=== PATIENT | male | born 1960 | race Caucasian/White ===

== ENCOUNTER 2020-08-30 04:41 | Emergency (ER) | payer BC ==
[2020-08-30] MEDS ORDERED: Ondansetron 4 MG/2 ML SDV IVPUSH ONE (05:18)
[2020-08-30] MEDS ORDERED: HYDROmorphone 0.5 MG/0.5 ML Syringe IVPUSH ONE ×2 (05:18→06:46)
--- NOTE | 2020-08-30 05:23 | EDM.PDOC ---
<Eric Edouard - Last Filed: 08/30/20 06:47> ED HPI GENERAL MEDICAL PROBLEM - General Chief Complaint: Gastrointestinal Problem Stated Complaint: ABD PAIN/VOMITING Time Seen by Provider: 08/30/20 05:15 Source of Information: Reports: Patient, Family History Limitations: Reports: No Limitations - History of Present Illness INITIAL COMMENTS - FREE TEXT/NARRATIVE: 59-year-old male who is been vomiting for 14 straight hours, abdominal cramps and pain, and weakness. No hematemesis. Bowels are moving, no diarrhea. He is not diabetic. He does have a history of pancreatitis but is not a drinker. No shortness of breath or chest pain, no jaundice or rash. Onset: Sudden Duration: Hour(s): (48 hours ago) Location: Reports: Abdomen (Pain is in his abdomen, generalized) Worsens with: Reports: Other (Increased pain with vomiting) Associated Symptoms: Reports: Loss of Appetite, Malaise, Nausea/Vomiting, Weakness. Denies: Fever/Chills, Headaches, Shortness of Breath Abdomen Pain Score (Numeric/FACES): 8 - Related Data Allergies Allergy/AdvReac Type Severity Reaction Status Date / Time No Known Allergies Allergy Verified 08/30/20 04:53 Home Meds: Home Meds Metoprolol Succinate 25 mg PO DAILY 08/30/20 [History] Ondansetron [Zofran ODT] 4 mg PO Q6H PRN #10 tab.dis 08/30/20 [Rx] Venlafaxine [Effexor XR] 150 mg PO DAILY 08/30/20 [History] lisinopriL [Lisinopril] 2.5 mg PO DAILY 08/30/20 [History] Past Medical History HEENT History: Reports: Impaired Vision Cardiovascular History: Reports: Hypertension, [place], Other (See Below) Respiratory History: Reports: COPD Gastrointestinal History: Reports: Pancreatitis Genitourinary History: Reports: Renal Calculus Musculoskeletal History: Reports: Fracture Psychiatric History: Reports: Depression - Infectious Disease History Infectious Disease History: Reports: Chicken Pox - Past Surgical History Cardiovascular Surgical History: Reports: Coronary Artery Stent Musculoskeletal Surgical History: Reports: Other (See Below) Other Musculoskeletal Surgeries/Procedures:: hip fx with pin Social & Family History - Tobacco Use Tobacco Use Status *Q: Former Tobacco User Years of Tobacco use: 20 Packs/Tins Daily: 1 Used Tobacco, but Quit: Yes Month/Year Tobacco Last Used: 2019 Second Hand Smoke Exposure: No - Caffeine Use Caffeine Use: Reports: Energy Drinks - Recreational Drug Use Recreational Drug Use: Yes Drug Use in Last 12 Months: Yes Recreational Drug Type: Reports: Marijuana/Hashish Recreational Drug Use Frequency: Weekly ED ROS GENERAL - Review of Systems Review Of Systems: See Below Constitutional: Reports: Malaise, Decreased Appetite. Denies: Fever, Chills HEENT: Reports: No Symptoms Respiratory: Denies: Shortness of Breath Cardiovascular: Denies: Chest Pain GI/Abdominal: Reports: Abdominal Pain, Nausea, Vomiting. Denies: Constipation, Diarrhea : Reports: No Symptoms Skin: Reports: No Symptoms Neurological: Reports: Weakness Psychiatric: Reports: No Symptoms ED EXAM, GENERAL - Physical Exam Exam: See Below Free Text/Narrative:: Patient is very thin, almost cachectic Exam Limited By: No Limitations General Appearance: Alert, Mild Distress (Very uncomfortable) Eye Exam: Bilateral Eye: Normal Inspection (No jaundice) Head: Atraumatic Respiratory/Chest: No Respiratory Distress, Lungs Clear Cardiovascular: Regular Rate, Rhythm. No: Tachycardia GI/Abdominal: Normal Bowel Sounds, Soft, Tender (Very tender to palpation diffusely, not rigid and not distended) Extremities: Normal Inspection. No: Pedal Edema Neurological: Alert, Oriented Psychiatric: Anxious, Flat Affect Skin Exam: Warm, Dry Course - Re-Assessments/Exams Free Text/Narrative Re-Assessment/Exam: 08/30/20 05:22 IV was started, patient was bolused with 1 L of lactated Ringer's, given 4 mg of IV Zofran and 0.5 mg of IV Dilaudid. CBC, CMP, lactic acid and lipase were obtained. 08/30/20 06:47 Labs were very reassuring, lipase was normal, lactic acid normal. His pain went down to a 4 after one liter of LR and the medications but he was still having discomfort and had no urinary output. A second liter of normal saline was given as well as a second dose of 0.5 mg of Dilaudid. Care was turned over to Dr. Odonnell he should be able to be discharged after the second round of medications. Departure - Departure Disposition: Home, Self-Care 01 Clinical Impression: Abdominal pain Qualifiers: Abdominal location: generalized Qualified Code(s): R10.84 - Generalized abdominal pain Nausea and vomiting Qualifiers: Vomiting type: unspecified Vomiting Intractability: non-intractable Qualified Code(s): R11.2 - Nausea with vomiting, unspecified - Discharge Information Prescriptions: Ondansetron [Zofran ODT] 4 mg PO Q6H PRN #10 tab.dis PRN Reason: Nausea Instructions: Nausea and Vomiting, Adult, [id number] Referrals: PCP,None [Primary Care Provider] - Forms: ED Department Discharge Additional Instructions: Use Zofran as needed for vomiting. Sip on fluids to maintain hydration. Advance diet slowly as tolerated. Use Acetaminophen for pain relief. Try an antacid like Maalox or Peptobismol to see if they help settle the stomach. F/U with your provider at your earliest opportunity. Sepsis Event Note (ED) - Evaluation Sepsis Screening Result: No Definite Risk <Melvin Odonnell - Last Filed: 08/30/20 08:11> Course - Vital Signs Last Recorded V/S: Last Vital Signs Temp 36.1 C 08/30/20 06:26 Pulse 80 08/30/20 06:26 Resp 16 08/30/20 06:26 BP 153/75 H 08/30/20 06:26 Pulse Ox 95 08/30/20 06:26 - Orders/Labs/Meds Orders: Active Orders 24 hr Category Date Time Status Lactated Ringers [Ringers, Lactated] 1,000 ml Med 08/30/20 05:30 Active IV ASDIRECTED Sodium Chloride 0.9% [Normal Saline] 1,000 ml Med 08/30/20 07:00 Active IV ASDIRECTED Medication Orders Lactated Ringer's (Ringers, Lactated) 1,000 mls @ 1,000 mls/hr IV ASDIRECTED BONG Last Admin: 08/30/20 05:26 Dose: 1,000 mls/hr Documented by: LINDA Sodium Chloride (Normal Saline) 1,000 mls @ 1,000 mls/hr IV ASDIRECTED BONG Last Admin: 08/30/20 06:53 Dose: 1,000 mls/hr Documented by: LINDA Labs: Laboratory Tests 08/30/20 08/30/20 08/30/20 Range/Units 05:24 05:24 05:24 WBC 9.8 (4.5-11.0) K/uL RBC 4.95 (4.30-5.90) M/uL Hgb 15.5 H (12.0-15.0) g/dL Hct 47.1 (40.0-54.0) % MCV 95 (80-98) fL MCH 31 (27-31) pg MCHC 33 (32-36) % Plt Count 143 L (150-400) K/uL Neut % (Auto) 85.4 H (36-66) % Lymph % (Auto) 11.8 L (24-44) % Lipscomb % (Auto) 2.6 (2-6) % Eos % (Auto) 0.1 L (2-4) % Baso % (Auto) 0.1 (0-1) % Sodium 141 (140-148) mmol/L Potassium 4.6 (3.6-5.2) mmol/L Chloride 101 (100-108) mmol/L Carbon Dioxide 23 (21-32) mmol/L Anion Gap 16.8 H (5.0-14.0) mmol/L BUN 24 H (7-18) mg/dL Creatinine 1.1 (0.8-1.3) mg/dL Est Cr Clr Drug Dosing 53.46 mL/min Estimated GFR (MDRD) > 60 (>60) Glucose 171 H (74-106) mg/dL Lactic Acid 2.1 H (0.4-2.0) mmol/L Calcium 9.1 (8.5-10.1) mg/dL Total Bilirubin 0.7 (0.2-1.0) mg/dL AST 27 (15-37) U/L ALT 38 (12-78) U/L Alkaline Phosphatase 103 (46-116) U/L Total Protein 7.9 (6.4-8.2) g/dL Albumin 4.4 (3.4-5.0) g/dL Globulin 3.5 (2.3-3.5) g/dL Albumin/Globulin Ratio 1.3 (1.2-2.2) Lipase 63 L (73-393) U/L Meds: Medications Generic Name Dose Route Start Last Admin Trade Name Freq PRN Reason Stop Dose Admin Lactated Ringer's 1,000 mls @ 1,000 mls/hr 08/30/20 05:30 08/30/20 05:26 Ringers, Lactated IV 1,000 mls/hr ASDIRECTED BONG Administration Sodium Chloride 1,000 mls @ 1,000 mls/hr 08/30/20 07:00 08/30/20 06:53 Normal Saline IV 1,000 mls/hr ASDIRECTED BONG Administration Discontinued Medications Generic Name Dose Route Start Last Admin Trade Name Wai PRN Reason Stop Dose Admin Hydromorphone HCl 0.5 mg 08/30/20 05:18 08/30/20 05:29 Hydromorphone 0.5 Mg/0.5 Ml Syringe IVPUSH 08/30/20 05:19 0.5 mg ONETIME ONE Administration Hydromorphone HCl 0.5 mg 08/30/20 06:46 08/30/20 06:54 Hydromorphone 0.5 Mg/0.5 Ml Syringe IVPUSH 08/30/20 06:47 0.5 mg ONETIME ONE Administration Ondansetron HCl 4 mg 08/30/20 05:18 08/30/20 05:27 Ondansetron 4 Mg/2 Ml Sdv IVPUSH 08/30/20 05:19 4 mg ONETIME ONE Administration Departure - Departure Time of Disposition: 08:10 Condition: Fair - Discharge Information *PRESCRIPTION DRUG MONITORING PROGRAM REVIEWED*: Not Applicable *COPY OF PRESCRIPTION DRUG MONITORING REPORT IN PATIENT TONY: Not Applicable Sepsis Event Note (ED) - Focused Exam Vital Signs: Vital Signs Temp Pulse Resp BP Pulse Ox 08/30/20 06:26 36.1 C 80 16 153/75 H 95 08/30/20 05:03 36.3 C 91 16 174/76 H 96
[2020-08-30] MEDS ORDERED: Lactated Ringers 1,000 ML IV SCH (05:30)
[2020-08-30] MEDS ORDERED: Sodium Chloride 0.9% 1,000 ML IV SCH (07:00)
== END 2020-08-30 08:36 | disposition home or self-care (01) ==
LOC: JP.ED 04:41
DX: R10.84 Generalized abdominal pain (principal); R11.2 Nausea with vomiting, unspecified; I10 Essential (primary) hypertension; J44.9 Chronic obstructive pulmonary disease, unspecified; Z79.899 Other long term (current) drug therapy; Z87.891 Personal history of nicotine dependence
CPT/HCPCS: 36415; 80053; 83605; 83690; 85025; 96374; 96375; 96376; 99284; J1170; J2405; J7030; J7120

== ENCOUNTER 2020-08-31 09:52 | Emergency (ER) | payer BC ==
[2020-08-31] MEDS ORDERED: Lactated Ringers 1,000 ML IV ONE ×2 (10:08→11:30)
[2020-08-31] MEDS ORDERED: diphenhydrAMINE 50 MG/ML SDV IVPUSH ONE (10:22)
[2020-08-31] MEDS ORDERED: Ketorolac 30 MG/ML SDV IVPUSH ONE (10:22)
[2020-08-31] MEDS ORDERED: Prochlorperazine 10 MG/2 ML SDV IVPUSH ONE (10:22)
--- NOTE | 2020-08-31 10:31 | EDM.PDOC ---
ED HPI GENERAL MEDICAL PROBLEM - General Chief Complaint: Flank Pain Stated Complaint: KIDNEY STONES Time Seen by Provider: 08/31/20 10:15 Source of Information: Reports: Patient, Old Records, RN History Limitations: Reports: No Limitations - History of Present Illness INITIAL COMMENTS - FREE TEXT/NARRATIVE: 59 yo male from [place] was here a couple days ago for nausea, vomiting, and abdominal pain. No abnormal labs were found except that he was dry. IV fluids, antiemetic and pain meds were given. He apparently did well until last night when he developed L flank pain with nausea and vomiting. He also reports gross hematuria. He has a pHx of kidney stones and says this is like those attacks. He has a urologist back home in [place]. No fever or hematemesis. Here with his , they plan on being here for only a couple more days. Onset: Sudden Onset Date: 08/30/20 Duration: Hour(s):, Waxing/Waning Location: Reports: Back (L flank) Quality: Reports: Pressure Severity: Severe Improves with: Reports: None Worsens with: Reports: Other (? stone movement) Context: Reports: Other (See HPI) Associated Symptoms: Reports: Nausea/Vomiting. 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) (Zofran ODT) Left Flank Pain Score (Numeric/FACES): 8 - Related Data Allergies Allergy/AdvReac Type Severity Reaction Status Date / Time No Known Allergies Allergy Verified 08/31/20 10:00 Home Meds: Home Meds Metoprolol Succinate 25 mg PO DAILY 08/30/20 [History] Ondansetron [Zofran ODT] 4 mg PO Q6H PRN #10 tab.dis 08/30/20 [Rx] Venlafaxine [Effexor XR] 150 mg PO DAILY 08/30/20 [History] lisinopriL [Lisinopril] 2.5 mg PO DAILY 08/30/20 [History] Past Medical History HEENT History: Reports: Impaired Vision Cardiovascular History: Reports: Hypertension, [place], Other (See Below) Respiratory History: Reports: COPD Gastrointestinal History: Reports: Pancreatitis Genitourinary History: Reports: Renal Calculus Musculoskeletal History: Reports: Fracture Psychiatric History: Reports: Depression - Infectious Disease History Infectious Disease History: Reports: Chicken Pox - Past Surgical History Cardiovascular Surgical History: Reports: Coronary Artery Stent Musculoskeletal Surgical History: Reports: Other (See Below) Other Musculoskeletal Surgeries/Procedures:: hip fx with pin Social & Family History - Tobacco Use Tobacco Use Status *Q: Never Tobacco User Second Hand Smoke Exposure: No - Caffeine Use Caffeine Use: Reports: None - Recreational Drug Use Recreational Drug Use: Yes Recreational Drug Type: Reports: Marijuana/Hashish ED ROS GENERAL - Review of Systems Review Of Systems: See Below Constitutional: Reports: No Symptoms HEENT: Reports: No Symptoms Respiratory: Reports: No Symptoms Cardiovascular: Reports: No Symptoms GI/Abdominal: Reports: Nausea, Vomiting. Denies: Abdominal Pain, Black Stool, Bloody Stool, Constipation, Diarrhea, Distension, Hematemesis, Hematochezia, Melena : Reports: Flank Pain (left), Hematuria Musculoskeletal: Reports: No Symptoms Skin: Reports: No Symptoms Neurological: Reports: No Symptoms ED EXAM, RENAL/ - Physical Exam Exam: See Below Exam Limited By: No Limitations General Appearance: Alert, Mild Distress, Thin Eye Exam: Bilateral Eye: Normal Inspection Ears: Normal External Exam, Normal Canal, Hearing Grossly Normal Nose: Normal Inspection, No Blood Throat/Mouth: Normal Inspection, Normal Lips, Normal Oropharynx, Normal Voice, No Airway Compromise Head: Atraumatic, Normocephalic Neck: Normal Inspection Respiratory/Chest: No Respiratory Distress, Lungs Clear, Normal Breath Sounds, No Accessory Muscle Use Cardiovascular: Regular Rate, Rhythm, No Edema GI/Abdominal: Normal Bowel Sounds, Soft, Non-Tender, No Distention. No: Distended, Guarding, Rigid, Rebound, Tender Back Exam: Normal Inspection. No: CVA Tenderness (R), CVA Tenderness (L) Extremities: Normal Inspection, Normal Range of Motion, Non-Tender, No Pedal Edema Neurological: Alert, Oriented, CN II-XII Intact, Normal Cognition, No Motor/Se nsory Deficits Psychiatric: Normal Affect, Normal Mood Skin Exam: Warm, Dry, Intact, Normal Color, No Rash Course - Vital Signs Last Recorded V/S: Last Vital Signs Temp 36.6 C 08/31/20 10:04 Pulse 70 08/31/20 11:56 Resp 14 08/31/20 11:56 BP 176/84 H 08/31/20 11:56 Pulse Ox 98 08/31/20 11:56 - Orders/Labs/Meds Labs: Laboratory Tests 08/31/20 08/31/20 Range/Units 11:32 11:32 Urine Color Yellow (YELLOW) Urine Appearance Clear (CLEAR) Urine pH 7.0 (5.0-8.0) Ur Specific [place] 1.020 (1.008-1.030) Urine Protein 100 H (NEGATIVE) mg/dL Urine Glucose (UA) Negative (NEGATIVE) mg/dL Urine Ketones 40 H (NEGATIVE) mg/dL Urine Occult Blood Moderate H (NEGATIVE) Urine Nitrite Negative (NEGATIVE) Urine Bilirubin Negative (NEGATIVE) Urine Urobilinogen 0.2 (0.2-1.0) EU/dL Ur Leukocyte Esterase Negative (NEGATIVE) Urine RBC 5-10 H (0-5) Urine WBC 0-5 (0-5) Ur Epithelial Cells Not seen Amorphous Sediment Rare Urine Bacteria Not seen Urine Mucus Few Urine Opiates Screen Negative (NEGATIVE) Ur Oxycodone Screen Negative (NEGATIVE) Urine Methadone Screen Negative (NEGATIVE) Ur Propoxyphene Screen Negative (NEGATIVE) Ur Barbiturates Screen Negative (NEGATIVE) Ur Tricyclics Screen Negative (NEGATIVE) Ur Phencyclidine Scrn Negative (NEGATIVE) Ur Amphetamine Screen Negative (NEGATIVE) U Methamphetamines Scrn Negative (NEGATIVE) Urine MDMA Screen Negative (NEGATIVE) U Benzodiazepines Scrn Negative (NEGATIVE) U Cocaine Metab Screen Negative (NEGATIVE) U Marijuana (THC) Screen Presumptive positive H (NEGATIVE) Meds: Medications Discontinued Medications Generic Name Dose Route Start Last Admin Trade Name Freq PRN Reason Stop Dose Admin Diphenhydramine HCl 50 mg 08/31/20 10:22 08/31/20 10:40 Diphenhydramine 50 Mg/Ml Sdv IVPUSH 08/31/20 10:23 50 mg ONETIME ONE Administration Hydromorphone HCl 0.5 mg 08/31/20 11:30 08/31/20 11:49 Hydromorphone 0.5 Mg/0.5 Ml Syringe IVPUSH 08/31/20 11:31 0.5 mg ONETIME ONE Administration Lactated Ringer's 1,000 mls @ 1,000 mls/hr 08/31/20 10:08 08/31/20 10:13 Ringers, Lactated IV 08/31/20 11:07 1,000 mls/hr BOLUS ONE Administration Lactated Ringer's 1,000 mls @ 1,000 mls/hr 08/31/20 11:30 08/31/20 11:47 Ringers, Lactated IV 08/31/20 12:29 1,000 mls/hr BOLUS ONE Administration Ketorolac Tromethamine 30 mg 08/31/20 10:22 08/31/20 10:33 Ketorolac 30 Mg/Ml Sdv IVPUSH 08/31/20 10:23 30 mg ONETIME ONE Administration Prochlorperazine Edisylate 10 mg 08/31/20 10:22 08/31/20 10:37 Prochlorperazine 10 Mg/2 Ml Sdv IVPUSH 08/31/20 10:23 10 mg ONETIME ONE Administration Tamsulosin HCl 0.4 mg 08/31/20 11:54 08/31/20 12:24 Tamsulosin 0.4 Mg Cap.Er PO 08/31/20 11:55 0.4 mg ONETIME ONE Administration - Re-Assessments/Exams Free Text/Narrative Re-Assessment/Exam: 08/31/20 11:30 nausea gone, pain is improved but still present. Will give more IV fluids and 0.5 mg of Dilaudid IV Free Text/Narrative Re-Assessment/Exam: 08/31/20 12:54 Now feeling well enough to go home. Does not want a CT scan at this time. Here with his . Departure - Departure Time of Disposition: 13:00 Disposition: Home, Self-Care 01 Condition: Fair Clinical Impression: Renal colic on left side, Kidney stone on left side - Discharge Information *PRESCRIPTION DRUG MONITORING PROGRAM REVIEWED*: No *COPY OF PRESCRIPTION DRUG MONITORING REPORT IN PATIENT TONY: No Instructions: Kidney Stones, [id number] Referrals: PCP,None [Primary Care Provider] - Forms: ED Department Discharge Additional Instructions: Strain urine and save any sediment for possible testing. Drink ample fluids. Use Zofran as needed for nausea control. Use ibuprofen or Aleve on a regular basis for pain control, follow directions on bottle. Take [place] for added relief. Use Flomax once daily to help with stone passage. Recheck soon with your doctor. Return as needed. Sepsis Event Note (ED) - Evaluation Sepsis Screening Result: No Definite Risk - Focused Exam Vital Signs: Vital Signs Temp Pulse Resp BP Pulse Ox 08/31/20 11:56 70 14 176/84 H 98 08/31/20 10:04 36.6 C 86 24 H 185/94 H 98
[2020-08-31] MEDS ORDERED: HYDROmorphone 0.5 MG/0.5 ML Syringe IVPUSH ONE (11:30)
[2020-08-31] MEDS ORDERED: Tamsulosin 0.4 MG Cap.ER PO ONE (11:54)
== END 2020-08-31 13:10 | disposition home or self-care (01) ==
LOC: JP.ED 09:52
DX: N20.0 Calculus of kidney (principal); I10 Essential (primary) hypertension; I25.2 Old myocardial infarction; J44.9 Chronic obstructive pulmonary disease, unspecified; Z79.899 Other long term (current) drug therapy; Z95.5 Presence of coronary angioplasty implant and graft
CPT/HCPCS: 80305; 81001; 96374; 96375; 99284; A9270; J0780; J1170; J1200; J1885; J7120